=== PATIENT | female | born 1995 | race Caucasian/White ===

== ENCOUNTER → 2022-11-17 | Outpatient (CLI) | payer MEDICAID, OTHER ==
[2022-11-17 14:19] LABS: HEMATOCRIT 32.4 % (36.0-47.0); HEMOGLOBIN 10.8 g/dl (12.0-15.5); MEAN CORPUSCULAR HEMOGLOBIN 28.2 pg (27.0-33.0); MEAN CORPUSCULAR HGB CONC 33.3 g/dl (32.0-36.5); MEAN CORPUSCULAR VOLUME 84.6 fl (80.0-96.0); PLATELET COUNT, AUTOMATED 260 10^3/uL (150-450); RED BLOOD COUNT 3.83 10^6/uL (4.00-5.40); WHITE BLOOD COUNT 8.3 10^3/uL (4.0-10.0)
[2022-11-17 14:58] LABS: HIV 1&2 SCREEN ATELLICA NEGATIVE (NEGATIVE)
[2022-11-17 15:58] LABS: GC DNA AMPLIFICATION NEGATIVE (NEGATIVE)
== END ==
LOC: M PLALAB 10:48
PROVIDERS: ATTEND Specialist
DX: Z36.9 Encounter for antenatal screening, unspecified (principal)

== ENCOUNTER → 2022-11-17 | Outpatient (REF) | payer MEDICAID | LOC: M PLALAB 10:32 | PROVIDERS: ATTEND Specialist | DX: Z53.20 Procedure and treatment not carried out because of patient's decision for unspecified reasons (principal) ==

== ENCOUNTER → 2022-12-16 | Outpatient (REF) | payer SELFPAY ==
[2022-12-16 15:50] LABS: GC DNA AMPLIFICATION NEGATIVE (NEGATIVE)
== END ==
LOC: M SFHCWAGY 13:11
PROVIDERS: ATTEND Advanced Practice Midwife
DX: A64 Unspecified sexually transmitted disease (principal)

== ENCOUNTER → 2022-12-16 | Outpatient (CLI) | payer SELFPAY | LOC: M WHC 09:30 | PROVIDERS: ATTEND Advanced Practice Midwife | DX: Z34.92 Encounter for supervision of normal pregnancy, unspecified, second trimester (principal); Z53.8 Procedure and treatment not carried out for other reasons ==

== ENCOUNTER → 2023-03-09 | Outpatient (CLI) | payer MEDICAID | LOC: M WHC 08:15 | PROVIDERS: ATTEND Obstetrics & Gynecology | DX: Z34.92 Encounter for supervision of normal pregnancy, unspecified, second trimester (principal) ==

== ENCOUNTER 2023-04-19 00:48 | Outpatient (CLI) | payer MEDICAID, SELFPAY ==
[~2023-04-19] VITALS: Ht 154.9 cm; Wt 67.4 kg
[2023-04-19 01:10] VITALS: BP 137/84
== END 2023-04-19 02:38 | disposition home or self-care (01) ==
LOC: M LDO 00:48
PROVIDERS: ATTEND Specialist
DX: O47.03 False labor before 37 completed weeks of gestation, third trimester (principal); O26.893 Other specified pregnancy related conditions, third trimester; O99.893 Other specified diseases and conditions complicating puerperium; R10.2 Pelvic and perineal pain; H53.8 Other visual disturbances; Z87.51 Personal history of pre-term labor; Z3A.35 35 weeks gestation of pregnancy
CPT/HCPCS: 59025; G0463

== ENCOUNTER → 2023-04-24 | Outpatient (CLI) | payer OTHER ==
[2023-04-24 16:27] LABS: HEMATOCRIT 24.3 % (36.0-47.0); HEMOGLOBIN 7.9 g/dl (12.0-15.5); MEAN CORPUSCULAR HEMOGLOBIN 28.4 pg (27.0-33.0); MEAN CORPUSCULAR HGB CONC 32.5 g/dl (32.0-36.5); MEAN CORPUSCULAR VOLUME 87.4 fl (80.0-96.0); PLATELET COUNT, AUTOMATED 195 10^3/uL (150-450); RED BLOOD COUNT 2.78 10^6/uL (4.00-5.40); WHITE BLOOD COUNT 8.8 10^3/uL (4.0-10.0)
[2023-04-24 21:24] LABS: GC DNA AMPLIFICATION NEGATIVE (NEGATIVE)
== END ==
LOC: M PLALAB 14:52
PROVIDERS: ATTEND Advanced Practice Midwife
DX: Z34.92 Encounter for supervision of normal pregnancy, unspecified, second trimester (principal)

== ENCOUNTER 2023-05-08 08:01 | Outpatient (CLI) | payer OTHER ==
[~2023-05-08] VITALS: Ht 157.5 cm; Wt 66.8 kg
[~2023-05-08 08:01] MED LIST: ACETAMINOPHEN 500 MG TAB PO ONE; IRON SUCROSE 500 MG in NS 250 ML OVER 4 HRS IV ONE; diphenhydrAMINE 50MG CAP PO ONE
[2023-05-08 08:05] VITALS: BP 135/89; O2SAT 100
[2023-05-08] MEDS ORDERED: IRON SUCROSE 500 MG in NS 250 ML OVER 4 HRS IV ONE (08:30)
[2023-05-08] MEDS ORDERED: ACETAMINOPHEN 500 MG TAB PO ONE (08:30)
[2023-05-08] MEDS ORDERED: diphenhydrAMINE 50MG CAP PO ONE (08:30)
[2023-05-08 09:30] VITALS: BP 165/85; O2SAT 100
[2023-05-08 10:30] VITALS: BP 138/75; O2SAT 96
[2023-05-08 11:30] VITALS: BP 136/68; O2SAT 99
[2023-05-08 13:30] VITALS: BP 145/92; O2SAT 99
== END 2023-05-08 13:30 | disposition home or self-care (01) ==
LOC: M INFU 08:01
PROVIDERS: ATTEND Advanced Practice Midwife
DX: D64.9 Anemia, unspecified (principal)
CPT/HCPCS: 96365; 96366; J1756

== ENCOUNTER → 2024-09-14 | Outpatient (REF) | payer OTHER ==
[~2024-09-14] MED LIST changes: -ACETAMINOPHEN 500 MG TAB PO ONE; +AMOX125C PO; +IBUP80TA PO; -IRON SUCROSE 500 MG in NS 250 ML OVER 4 HRS IV ONE; -diphenhydrAMINE 50MG CAP PO ONE
== END ==
LOC: M PLALAB 09:04
PROVIDERS: ATTEND Obstetrics & Gynecology
DX: Z34.92 Encounter for supervision of normal pregnancy, unspecified, second trimester (principal); Z3A.00 Weeks of gestation of pregnancy not specified; Z53.9 Procedure and treatment not carried out, unspecified reason

== ENCOUNTER → 2024-09-14 | Outpatient (CLI) | payer OTHER ==
[2024-09-14 14:42] LABS: HEMOGLOBIN 10.9 g/dl (12.0-15.5); MEAN CORPUSCULAR HEMOGLOBIN 29.8 pg (27.0-33.0); MEAN CORPUSCULAR HGB CONC 34.1 g/dl (32.0-36.5); MEAN CORPUSCULAR VOLUME 87.4 fl (80.0-96.0); PLATELET COUNT, AUTOMATED 252 10^3/uL (150-450); RED BLOOD COUNT 3.66 10^6/uL (4.00-5.40); WHITE BLOOD COUNT 8.2 10^3/uL (4.0-10.0)
[2024-09-14 14:52] LABS: ALBUMIN 3.1 G/DL (3.2-5.2); ALKALINE PHOSPHATASE 64 U/L (35-104); ALT/SGPT 39 U/L (7.0-40); AST/SGOT 39 U/L (<34); BILIRUBIN,TOTAL 0.4 MG/DL (0.3-1.2); BLOOD UREA NITROGEN 7 MG/DL (9-23); CALCIUM LEVEL 9.2 MG/DL (8.5-10.1); CARBON DIOXIDE LEVEL 24 MMOL/L (20-31); CHLORIDE LEVEL 108 MMOL/L (98-107); CREATININE FOR GFR 0.52 MG/DL (0.55-1.30); GLOMERULAR FILTRATION RATE > 60.0 (>60); GLUCOSE, FASTING 88 MG/DL (60-100); POTASSIUM SERUM 4.4 MMOL/L (3.5-5.1); SODIUM LEVEL 140 MMOL/L (136-145); TOTAL PROTEIN 6.6 G/DL (5.7-8.2)
[2024-09-14 15:17] LABS: HIV 1&2 SCREEN NEGATIVE (NEGATIVE)
[2024-09-14 15:18] LABS: TOTAL PROTEIN,RANDOM URINE 7.5 MG/DL (0.0-14.0)
[2024-09-14 15:22] LABS: CREATININE,RANDOM URINE 45.9 MG/DL
[2024-09-14 16:28] LABS: Trichomonas vaginalis (AMP) NOT DETECTED (NEGATIVE)
[2024-09-14 16:51] LABS: GC DNA AMPLIFICATION NEGATIVE (NEGATIVE)
== END ==
LOC: M PLALAB 09:40
PROVIDERS: ATTEND Obstetrics & Gynecology
DX: Z34.92 Encounter for supervision of normal pregnancy, unspecified, second trimester (principal)